=== PATIENT | female | born 1955 | race Caucasian/White ===

== ENCOUNTER 2022-01-27 09:55 | Observation (INO) ==
[~2022-01-27 09:55] MED LIST: Buffered Lidocaine 1% SYRIN 1 ml INTRADERM ONE; Famotidine IV 10 MG/ML 2 ml VIAL (20 mg) IV ONE; Lactated Ringers 1000 ml BAG 1,000 ML IV SCH
[2022-01-27] MEDS ORDERED: Clindamycin 900 MG/D5W BAG 900 MG/50 ML BAG IVPB ONE (10:28)
[2022-01-27] MEDS ORDERED: Famotidine IV 10 MG/ML 2 ml VIAL (20 mg) ONE (10:28)
[2022-01-27] MEDS ORDERED: Ropivacaine 5 MG/ML 20 ML VIAL 0.5% (100 MG) ONE (12:33)
[2022-01-27] MEDS ORDERED: Propofol 10 MG/ML 20 ML BTL ONE (12:40)
[2022-01-27] MEDS ORDERED: Dexamethasone IV 4 MG/ML VIAL 1 ml VIAL ONE (12:40)
[2022-01-27] MEDS ORDERED: Rocuronium 50 mg VIAL 10 mg/ml 5 ml VIAL (50 mg) ONE (12:40)
[2022-01-27] MEDS ORDERED: Ondansetron 4 mg VIAL 2 MG/ML 2 ml VIAL ONE (12:40)
[2022-01-27] MEDS ORDERED: Lidocaine 2% PF 5 ML VIAL ONE (12:40)
[2022-01-27] MEDS ORDERED: fentaNYL 100 mcg/2 ml 50 MCG/ML VIAL ONE ×2 (12:40→16:33)
[2022-01-27] MEDS ORDERED: HYDROmorphone 0.5 MG/0.5 ML SYRINGE ONE ×2 (14:02→15:45)
[2022-01-27] MEDS ORDERED: Naloxone 0.4 mg VIAL 0.4 mg/ml 1 ml VIAL IV PRN (14:09)
[2022-01-27] MEDS ORDERED: Lactulose 30 ml UDC PO PRN (14:17)
[2022-01-27] MEDS ORDERED: Morphine 2 MG/ML SYRINGE IV PRN (14:17)
[2022-01-27] MEDS ORDERED: Ondansetron 4 mg VIAL 2 MG/ML 2 ml VIAL IV PRN (14:17)
[2022-01-27] MEDS ORDERED: Ondansetron ODT 4 mg TAB 4 MG TAB PO PRN (14:17)
[2022-01-27] MEDS ORDERED: Magnesium Hydroxide LIQ 30 ML UDC PO PRN (14:17)
[2022-01-27] MEDS ORDERED: Clindamycin 600 MG/D5W BAG 600 MG/50 ML BAG IV SCH (15:00)
[2022-01-27] MEDS ORDERED: Acetaminophen IV 1 GM/100ML 1,000 MG/100 ML BAG IV ONE (15:44)
[2022-01-27] MEDS ORDERED: ROPIVACAINE 5 MG/ML 30 ML BTL (0.5%) ONE (16:02)
[2022-01-27] MEDS: fentaNYL 100 mcg/2 ml 50 MCG/ML VIAL IV PRN ×2 (16:34→17:18)
[2022-01-27] MEDS ORDERED: Levalbuterol HFA INHALER MDI INH PRN (18:20)
[2022-01-27] MEDS: Lactated Ringers 1000 ml BAG 1,000 ML IV SCH (18:43)
[2022-01-27] MEDS: Magnesium Hydroxide LIQ 30 ML UDC PO SCH (21:37)
[2022-01-27] MEDS: Clindamycin 600 MG/D5W BAG 600 MG/50 ML BAG IV SCH (21:43)
[2022-01-28] MEDS: Clindamycin 600 MG/D5W BAG 600 MG/50 ML BAG IV SCH ×2 (05:21→13:26)
[2022-01-28] MEDS: Lactated Ringers 1000 ml BAG 1,000 ML IV SCH (05:21)
[2022-01-28 05:57] LABS: Hematocrit 38 % (35-47); Hemoglobin 12.4 g/dL (12.0-16.0); Mean Platelet Volume 7.1 fL (7.4-10.4); Platelet Count 218 10^3/uL (150-450)
[2022-01-28 06:32] LABS: Calcium 8.9 mg/dL (8.6-10.3); Potassium 4.5 mmol/L (3.5-5.0); eGFR CKD-EPI 95.3 (>60)
[2022-01-28] MEDS ORDERED: Vitamin THERAPEUTIC TAB PO SCH (09:00)
[2022-01-28] MEDS: Magnesium Hydroxide LIQ 30 ML UDC PO SCH (09:14)
[2022-01-28] MEDS ORDERED: Nicotine PATCH 21 MG/24 HR PATCH TRANSDERM SCH (10:30)
[2022-01-28 12:18] VITALS: BP 103/67
== END 2022-01-28 14:45 | disposition home or self-care (01) ==
LOC: AA 09:55 → INTOOBSV 09:55 → SSU 18:16
PROVIDERS: ADMIT Orthopaedic Surgery Adult Reconstructive Orthopaedic Surgery; ATTEND Orthopaedic Surgery Adult Reconstructive Orthopaedic Surgery